=== PATIENT | female | born 1955 ===

== ENCOUNTER 2017-05-11 10:24 | Emergency (ER) | payer MEDICAID ==
[2017-05-11 10:25] VITALS: BMI 29.0
[2017-05-11 10:29] VITALS: BP 122/69; PULSE 71; RESP 16; TEMP 97.8; O2SAT 98
--- NOTE | 2017-05-11 11:47 | CT ---
PROCEDURE: CT ORBITS WITHOUT CONTRAST. HISTORY: s/p fall, no LOC. ?nasal/orbital fx COMPARISON: None available. TECHNIQUE: Axial CT images of the orbits were obtained. Coronal and sagittal reformats were generated. Radiation dose: Total exam DLP = 773.75 mGy-cm. This CT exam was performed using one or more of the following dose reduction techniques: Automated exposure control, adjustment of the mA and/or kV according to patient size, and/or use of iterative reconstruction technique. FINDINGS: RIGHT ORBIT: RIGHT BONY ORBIT: Normal. RIGHT INTRAORBITAL STRUCTURES: Globe: Normal. Extraocular muscles: Normal. Post septal space: Normal. Optic Nerve: Normal. Lacrimal Apparatus: Normal. RIGHT PRESEPTAL SOFT TISSUES: Normal. LEFT ORBIT: LEFT BONY ORBIT: Normal. LEFT INTRAORBITAL STRUCTURES: Globe: Normal. Extraocular muscles: Normal. Post septal space: Normal Optic Nerve: Normal. . Lacrimal Apparatus: Normal. LEFT PRESEPTAL SOFT TISSUES: Normal. OTHER: Note is made of mid to inferior right nasal soft tissue edema/hematoma. Incidental note is made of prior anterior fusion at C4-5. IMPRESSION: Unremarkable appearing bilateral orbits although right nasal soft tissue edema/ hematoma is appreciate the mid to distal segment. Incidental findings as discussed above.
--- NOTE | 2017-05-11 14:09 | C.PDOC ---
History Of Present Illness 61 y/o female presents to ED s/p trip and fall on sidewalk [employer] with complaints of minimal pain to right elbow and facial pain. Patient report no loc and denies symptoms prior to incident. Patient denies chest pain, shortness of breath, abdominal pain or any other complaints at this time. Time Seen by Provider: 05/11/17 10:44 Chief Complaint (Nursing): ENT Problem History Per: Patient History/Exam Limitations: no limitations Onset/Duration Of Symptoms: Hrs Current Symptoms Are (Timing): Still Present Quality: "Pain" Past Medical History Reviewed: Historical Data, Nursing Documentation, Vital Signs Vital Signs: Last Vital Signs Temp 97.8 F 05/11/17 10:26 Pulse 71 05/11/17 10:26 Resp 16 05/11/17 10:26 BP 122/69 05/11/17 10:26 Pulse Ox 98 05/11/17 14:10 - Medical History PMH: CVA, Chronic Pain Surgical History: No Surg Hx Family History: States: No Known Family Hx - Social History Hx Tobacco Use: No Hx Alcohol Use: No Hx Substance Use: No - Immunization History Hx Tetanus Toxoid Vaccination: No Hx Influenza Vaccination: No Hx Pneumococcal Vaccination: No Review Of Systems Except As Marked, All Systems Reviewed And Found Negative. Constitutional: Negative for: Fever, Chills Eyes: Negative for: Vision Change Cardiovascular: Negative for: Chest Pain Respiratory: Negative for: Shortness of Breath Gastrointestinal: Negative for: Nausea Skin: Negative for: Rash Neurological: Negative for: Weakness, Numbness, Headache, Dizziness Physical Exam - Physical Exam Appears: Non-toxic, No Acute Distress Skin: Normal Color, Warm, Dry, No Rash Head: Normacephalic Eye(s): bilateral: Normal Inspection, PERRL, EOMI Nose: Normal, No Epistaxis, Other (Bridge of nose swelling. ) Oral Mucosa: Moist Neck: Normal ROM, Supple Chest: Symmetrical Extremity: Normal ROM, Capillary Refill (<2 seconds), No Deformity, No Swelling Extremity: Bilateral: Normal ROM Pulses: Left Radial: Normal, Right Radial: Normal Neurological/Psych: Oriented x3, Normal Speech, Normal Motor, Normal Sensation ED Course And Treatment O2 Sat by Pulse Oximetry: 98 (RA) Pulse Ox Interpretation: Normal Disposition - Disposition Disposition: HOME/ ROUTINE Disposition Time: 11:50 Condition: GOOD Additional Instructions: Thank you for letting us take care of you today. Your provider was Dr. Raymundo. You were treated for facial contusion. The emergency medical care you received today was directed at your acute symptoms. If you were prescribed any medication, please fill it and take as directed. It may take several days for your symptoms to resolve. Return to the Emergency Department if your symptoms worsen, do not improve, or if you have any other problems. Please contact your doctor or call one of the physicians/clinics you have been referred to that are listed on the Patient Visit Information form that is included in your discharge packet. Bring any paperwork you were given at discharge with you along with any medications you are taking to your follow up visit. Our treatment cannot replace ongoing medical care by a primary care provider (PCP) outside of the emergency department. Thank you for allowing the [facility] team to be part of your care today. Follow up with your doctor in 2-3 days for re-evaluation and further management. Prescriptions: Ibuprofen [Motrin] 600 mg PO Q6 PRN #20 tab PRN Reason: Pain, Moderate (4-7) Instructions: Head Injury (ED) Forms: [employer] (Ivorian) - Clinical Impression Clinical Impression: Facial contusion - Scribe Statement The provider has reviewed the documentation as recorded by the Fabianibnicole Matthews All medical record entries made by the Fabianibnicole were at my direction and personally dictated by me. I have reviewed the chart and agree that the record accurately reflects my personal performance of the history, physical exam, medical decision making, and the department course for this patient. I have also personally directed, reviewed, and agree with the discharge instructions and disposition.
== END 2017-05-11 12:13 | disposition home or self-care (01) ==
LOC: C.ER 10:24
DX: S00.83XA Contusion of other part of head, initial encounter (principal); W01.0XXA Fall on same level from slipping, tripping and stumbling without subsequent striking against object, initial encounter; Y93.89 Activity, other specified; Y92.480 Sidewalk as the place of occurrence of the external cause

== ENCOUNTER 2018-05-26 08:59 | Emergency (ER) | payer MEDICAID ==
[2018-05-26 09:07] VITALS: BMI 33.1
[2018-05-26 09:08] VITALS: BP 127/77; RESP 18
--- NOTE | 2018-05-26 10:10 | C.PDOC ---
History Of Present Illness 62 y/o female with history of CVA with right residual arm weakness and left handed carpal tunnel syndrome presents to ED with c/o left shoulder pain radiating to hand for 2 months associated with tingling to third, fourth and fifth fingers. Patient states she was seen by PMD and given unknown cream with no improvement and states pain is worse when using cane to walk. Patient is left hand dominant and denies trauma, numbness, weakness to left arm or any other complaints at this time. Time Seen by Provider: 05/26/18 09:23 Chief Complaint (Nursing): Upper Extremity Problem/Injury History Per: Patient History/Exam Limitations: no limitations Onset/Duration Of Symptoms: Days Current Symptoms Are (Timing): Still Present Past Medical History Reviewed: Historical Data, Nursing Documentation, Vital Signs Vital Signs: Last Vital Signs Temp 98.6 F 05/26/18 09:04 Pulse 78 05/26/18 09:04 Resp 18 05/26/18 09:04 BP 127/77 05/26/18 09:04 Pulse Ox 98 05/26/18 09:04 - Medical History PMH: CVA, Chronic Pain Surgical History: Tonsillectomy Family History: States: No Known Family Hx - Social History Hx Tobacco Use: No Hx Alcohol Use: No Hx Substance Use: No - Immunization History Hx Tetanus Toxoid Vaccination: No Hx Influenza Vaccination: No Hx Pneumococcal Vaccination: No Review Of Systems Musculoskeletal: Positive for: Shoulder Pain, Hand Pain Skin: Negative for: Rash, Bruising Neurological: Negative for: Weakness, Numbness Physical Exam - Physical Exam Appears: Non-toxic, No Acute Distress Skin: Warm, Dry, No Rash Head: Atraumatic, Normacephalic Eye(s): bilateral: Normal Inspection Oral Mucosa: Moist Neck: Normal ROM, No Midline Cervical Tenderness, Supple Extremity: No Normal ROM (dec rom at left shoulder, able to abduct to shoulder height), Tenderness (insertion left bicep ), Capillary Refill (<2 seconds), No Deformity, Other (pronate/suponate left wrist within normal limits, tender Tinel sign, nrom all fingers and wrist. ) Extremity: Left: Limited ROM To Joint (shoulder secondary to pain ) Pulses: Left Radial: Normal Neurological/Psych: Oriented x3, Normal Speech, Normal Cognition, Normal Motor, Normal Sensation ED Course And Treatment O2 Sat by Pulse Oximetry: 98 (RA) Pulse Ox Interpretation: Normal - Other Rad Left Shoulder X-Ray: Viewed By Me, Read By Radiologist Interpretation: IMPRESSION: No evidence of acute displaced fracture nor dislocation mild degenerative osteoarthritis. Medical Decision Making Medical Decision Making: pt with dec pain s/p toradol. no acute fx noted on xray. d/c home with ortho f/u Disposition Counseled Patient/Family Regarding: Studies Performed, Diagnosis, Need For Followup, Rx Given - Disposition Referrals: Jonel Silver III, MD [Staff Provider] - Juan Peña MD [Medical Doctor] - Disposition: HOME/ ROUTINE Disposition Time: 11:36 Condition: GOOD Additional Instructions: Please follow up with Dr Silver (orthopedics) and with Dr Peña. Referral for physical therapy recommended. Cold compresses to left shoulder several times a day. Tylenol for pain. Prescriptions: Acetaminophen [Tylenol 325mg tab] 650 mg PO Q4 #50 tab Instructions: Shoulder Pain (DC) Forms: [facility] (Sri Lankan), General Discharge Instructions - Clinical Impression Clinical Impression: Left shoulder pain - PA / WAREHOUSE CLERK / Resident Statement MD/DO has reviewed & agrees with the documentation as recorded. - Scribe Statement The provider has reviewed the documentation as recorded by the Raji Matthews All medical record entries made by the Raji were at my direction and personally dictated by me. I have reviewed the chart and agree that the record accurately reflects my personal performance of the history, physical exam, medical decision making, and the department course for this patient. I have also personally directed, reviewed, and agree with the discharge instructions and disposition.
--- NOTE | 2018-05-26 10:32 | RAD ---
Date of service: 05/26/2018 PROCEDURE: Radiographs of the Left Shoulder HISTORY: pain,. dec rom COMPARISON: No prior. FINDINGS: BONES: Normal. No fracture. JOINTS: Mild degenerative osteoarthritis of the acromioclavicular and glenohumeral joints... SOFT TISSUES: Normal. OTHER FINDINGS: Note made of in situ 3 level ACDF plate mid cervical spine IMPRESSION: No evidence of acute displaced fracture nor dislocation mild degenerative osteoarthritis.
[2018-05-26 11:48] VITALS: PULSE 84; TEMP 98
[2018-05-26 18:17] VITALS: O2SAT 98
== END 2018-05-26 11:47 | disposition home or self-care (01) ==
LOC: C.ER 08:59
DX: M25.512 Pain in left shoulder (principal)
CPT/HCPCS: 73030; 96372; 99284; J1885

== ENCOUNTER 2018-11-25 21:14 | Emergency (ER) | payer MEDICAID | END 2018-11-25 22:42 | disposition home or self-care (01) | LOC: C.ER 21:14 ==

== ENCOUNTER 2018-12-20 15:48 | Emergency (ER) | payer MEDICAID ==
[2018-12-20 15:57] VITALS: BMI 32.9
[2018-12-20 15:59] VITALS: RESP 18
--- NOTE | 2018-12-20 16:59 | RAD ---
Date of service: 12/20/2018 PROCEDURE: Right Knee Radiographs. HISTORY: RIGHT KNEE PAIN AFTER FALL COMPARISON: None. TECHNIQUE: 2 views obtained. FINDINGS: BONES: Impacted fracture proximal diaphysis right fibula with tibia intact. No femoral fracture. Cortical sclerosis and minimal osteophytosis at the medial lateral femorotibial as well as patellofemoral compartments for reflects mild tricompartmental osteoarthritis. JOINTS: No subluxation or dislocation. JOINT EFFUSION: Trace suprapatellar bursa effusion. OTHER FINDINGS: None. IMPRESSION: Impacted fracture proximal right fibular diaphysis. Otherwise mild tricompartmental osteoarthritis right knee.
--- NOTE | 2018-12-20 17:03 | RAD ---
Date of service: 12/20/2018 PROCEDURE: Right Ankle Radiographs. HISTORY: RIGHT ANKLE PAIN R/O FX COMPARISON: None available. TECHNIQUE: 3 views obtained. FINDINGS: BONES: No acute fracture or destructive bony lesion identified. JOINTS: Incidental extensive degenerative changes at the tarsal tarsal articulations as well as mildly at the tibiotalar joint and subtalar joint. No subluxation or dislocation. Ankle mortise maintained. Talar dome intact SOFT TISSUES: Large plantar calcaneal spur. OTHER FINDINGS: None. IMPRESSION: No acute fracture or dislocation. Osteoarthritis as discussed above as well as large plantar calcaneal spur.
--- NOTE | 2018-12-20 17:25 | C.PDOC ---
History Of Present Illness 63 y/o female presents to ED complaining of ankle pain after a slip and fall 4 days ago. Patient states she was at home when she slipped on water and fell. States that her leg moved backwards on her ankle and she has been having ankle pain since then. Denies head injury or LOC. Time Seen by Provider: 12/20/18 16:02 Chief Complaint (Nursing): Lower Extremity Problem/Injury History Per: Patient History/Exam Limitations: no limitations Onset/Duration Of Symptoms: Days Current Symptoms Are (Timing): Still Present Past Medical History Reviewed: Historical Data, Nursing Documentation, Vital Signs Vital Signs: Last Vital Signs Temp 98.4 F 12/20/18 15:57 Pulse 80 12/20/18 15:57 Resp 18 12/20/18 15:57 BP 112/70 12/20/18 15:57 Pulse Ox 95 12/20/18 15:57 Primary Care Provider: Juan Peña - Medical History PMH: CVA, Chronic Pain Surgical History: Tonsillectomy Family History: States: No Known Family Hx - Social History Hx Tobacco Use: No Hx Alcohol Use: No Hx Substance Use: No - Immunization History Hx Tetanus Toxoid Vaccination: No Hx Influenza Vaccination: No Hx Pneumococcal Vaccination: No Review Of Systems Constitutional: Negative for: Fever, Chills Musculoskeletal: Positive for: Other (ankle pain). Negative for: Neck Pain, Back Pain Neurological: Negative for: Weakness, Numbness, Other (LOC) Physical Exam - Physical Exam Appears: Non-toxic, No Acute Distress Skin: Warm, Dry Head: Normacephalic Eye(s): bilateral: Normal Inspection Oral Mucosa: Moist Neck: Supple Extremity: No Deformity, No Swelling (or erythema), Other (ecchymosis at medial aspect of right ankle, mild diffuse tenderness, tenderness to palpation at the proximal fibula) Extremity: Bilateral: Atraumatic, Normal Color And Temperature Neurological/Psych: Oriented x3, Normal Speech ED Course And Treatment O2 Sat by Pulse Oximetry: 95 (RA) Pulse Ox Interpretation: Normal - Other Rad Knee XR X-Ray: Read By Radiologist Interpretation: FINDINGS: BONES: Impacted fracture proximal diaphysis right fibula with tibia intact. No femoral fracture. Cortical sclerosis and minimal osteophytosis at the medial lateral femorotibial as well as patellofemoral compartments for reflects mild tricompartmental osteoarthritis. JOINTS: No subluxation or dislocation. JOINT EFFUSION: Trace suprapatellar bursa effusion. OTHER FINDINGS: None. IMPRESSION: Impacted fracture proximal right fibular diaphysis. Otherwise mild tricompartmental osteoarthritis right knee. Ankle XR X-Ray: Read By Radiologist Interpretation: FINDINGS: BONES: No acute fracture or destructive bony lesion identified. JOINTS: Incidental extensive degenerative changes at the tarsal tarsal articulations as well as mildly at the tibiotalar joint and subtalar joint. No subluxation or dislocation. Ankle mortise maintained. Talar dome intact. SOFT TISSUES: Large plantar calcaneal spur. OTHER FINDINGS: None. IMPRESSION: No acute fracture or dislocation. Osteoarthritis as discussed above as well as large plantar calcaneal spur. Progress Note: X-rays of knee and ankle taken, showed a fracture at proximal of fibula. Patient was put on a knee immobilizer. States she has a walker so she refused crutches. Patient instructed to follow up with ortho. Disposition Counseled Patient/Family Regarding: Studies Performed, Diagnosis, Need For Followup, Rx Given - Disposition Referrals: Jessica Bustos MD [Staff Provider] - Disposition: HOME/ ROUTINE Disposition Time: 17:25 Condition: STABLE Additional Instructions: FOLLOW UP WITH ORTHOPEDICS WITHIN 1 WEEK USE PAIN MEDICATION NEEDED RETURN TO ER IF SYMPTOMS WORSEN Prescriptions: Ibuprofen [Motrin Tab] 600 mg PO Q6 PRN #30 tab PRN Reason: fever/pain traMADol [Ultram] 50 mg PO BID PRN #12 tab PRN Reason: pain Instructions: Fibula Fracture (DC) Forms: [employer] (Fijian) Print Language: SUDANESE - POA Present On Arrival: Falls Or Trauma - Clinical Impression Clinical Impression: Right ankle sprain, Fracture, fibula, proximal - Scribe Statement The provider has reviewed the documentation as recorded by the Raji Campbell Provider Attestation: All medical record entries made by the Raji were at my direction and perso ladi dictated by me. I have reviewed the chart and agree that the record accurately reflects my personal performance of the history, physical exam, medical decision making, and the department course for this patient. I have also personally directed, reviewed, and agree with the discharge instructions and disposition.
[2018-12-20 18:24] VITALS: BP 150/83; PULSE 76; TEMP 97.5
[2018-12-20 19:02] VITALS: O2SAT 95
== END 2018-12-20 18:58 | disposition home or self-care (01) ==
LOC: C.ER 15:48
DX: S93.401A Sprain of unspecified ligament of right ankle, initial encounter (principal); S82.401A Unspecified fracture of shaft of right fibula, initial encounter for closed fracture; W01.0XXA Fall on same level from slipping, tripping and stumbling without subsequent striking against object, initial encounter; Y92.009 Unspecified place in unspecified non-institutional (private) residence as the place of occurrence of the external cause